=== PATIENT | male | born 1985 | race African-American/Black ===

== ENCOUNTER 2023-10-27 08:48 | Emergency (ER) | payer SELFPAY ==
[~2023-10-27] VITALS: Ht 180.3 cm; Wt 67.0 kg
[2023-10-27 08:54] VITALS: O2SAT 100
[2023-10-27 09:16] LABS: HEMATOCRIT. 33.3 % (42.0-52.0); HEMOGLOBIN. 11.2 g/dL (14.0-18.0); MEAN CORPUSCULAR HEMOGLOBIN 30.3 pg (28.0-32.0); MEAN CORPUSCULAR HGB CONC 33.6 g/dL (31.0-37.0); MEAN CORPUSCULAR VOLUME 90.1 fL (80.0-94.0); PLATELET 279 x1000/uL (130-400); RED CELL DISTRIBUTION WIDTH 14.2 % (11.6-14.6); WHITE BLOOD COUNT 4.9 x1000/uL (4.5-11.0)
[2023-10-27 09:17] LABS: DIFFERENTIAL COMMENT 1
[2023-10-27 09:24] LABS: CHLORIDE 104 mEq/L (98-107); POTASSIUM 3.8 mEq/L (3.5-5.1); SODIUM 137 mEq/L (136-145)
[2023-10-27 09:25] LABS: CALCIUM 8.9 mg/dL (8.7-10.4); CARBON DIOXIDE 26 mEq/L (21-32)
[2023-10-27 09:30] LABS: CREATININE 0.7 mg/dL (0.6-1.3); GLUCOSE 95 mg/dL (70-105); UREA NITROGEN BLOOD 9 mg/dL (9-23)
[2023-10-27 09:32] LABS: ALANINE AMINOTRANSFERASE 87 IU/L (10-49); ALBUMIN 4.2 g/dL (3.2-4.8); ASPARTATE AMINOTRANSFERASE 135 IU/L (<34); BILIRUBIN TOTAL 0.5 mg/dL (0.1-1.0); PROTEIN TOTAL 7.1 g/dL (6.0-8.3)
[2023-10-27] MEDS ORDERED: POLY17PO3 MT (09:35)
[2023-10-27] MEDS ORDERED: DOCU-138 MT (09:35)
[2023-10-27] MEDS ORDERED: PHEN51CR24 TP (09:35)
[2023-10-27] MEDS ORDERED: SENN-257 MT (09:35)
[2023-10-27 09:49] VITALS: BP 112/86; PULSE 85; RESP 16; TEMP 98.6
[2023-10-27 10:11] LABS: PLATELET ESTIMATE NORMAL; TARGET CELLS 1+
== END 2023-10-27 09:53 | disposition home or self-care (01) ==
LOC: ER 08:48
DX: K59.00 Constipation, unspecified (principal); K64.4 Residual hemorrhoidal skin tags
CPT/HCPCS: 36415; 80053; 85025; 99283

== ENCOUNTER 2024-07-29 07:29 | Emergency (ER) | payer MEDICAID ==
[~2024-07-29] VITALS: Ht 180.3 cm; Wt 68.0 kg
[~2024-07-29 07:29] MED LIST: DOCU-138 MT; PHEN51CR24 TP; POLY17PO3 MT; SENN-362 MT
[2024-07-29 07:39] VITALS: BP 145/92; PULSE 99; RESP 16; TEMP 36.8; O2SAT 99
[2024-07-29] MEDS: BACITRACIN ZINC OINT UDPKT TOP ONE (08:41)
[2024-07-29] MEDS ORDERED: IBUP-2028 MT (08:43)
[2024-07-29] MEDS ORDERED: ACET-2708 MT (08:43)
[2024-07-29] MEDS: ACETAMINOPHEN 325MG TABLET PO ONE (09:08)
== END 2024-07-29 10:38 | disposition home or self-care (01) ==
LOC: ER 08:11
DX: S82.891A Other fracture of right lower leg, initial encounter for closed fracture (principal); W18.30XA Fall on same level, unspecified, initial encounter; Y93.89 Activity, other specified; Y92.89 Other specified places as the place of occurrence of the external cause; Y99.8 Other external cause status
CPT/HCPCS: 29515; 73120; 73610; 99284